=== PATIENT | male | born 1980 | race Caucasian/White ===

== ENCOUNTER 2019-11-08 17:31 | Emergency (ER) | payer BC ==
[~2019-11-08] VITALS: Ht 180.3 cm; Wt 129.3 kg
[2019-11-08 17:32] VITALS: BP 166/93
[2019-11-08] MEDS: FLUORESCEIN OPHTH TEST STRIP. OD ONE (17:45)
[2019-11-08] MEDS: DEXAMETHASONE 4 MG TABLET PO ONE (17:45)
[2019-11-08] MEDS: TETRACAINE 0.5% OPHTH SOLUTION 4ML BOTTLE. OD ONE (17:45)
[2019-11-08] MEDS ORDERED: PRED20TA PO (17:58)
[2019-11-08] MEDS ORDERED: HYDR-3164 PO (17:58)
--- NOTE | 2019-11-08 17:58 | PHYS DOC ---
Adult General Chief Complaint Chief Complaint: SHINGLES HPI HPI Patient is a 39 year old [f__sex] who presents with [] Review of Systems Review of Systems Constitutional: Denies fever or chills [] Eyes: Denies change in visual acuity, redness, or eye pain [] HENT: Denies nasal congestion or sore throat [] Respiratory: Denies cough or shortness of breath [] Cardiovascular: No additional information not addressed in HPI [] GI: Denies abdominal pain, nausea, vomiting, bloody stools or diarrhea [] : Denies dysuria or hematuria [] Musculoskeletal: Denies back pain or joint pain [] Integument: Denies rash or skin lesions [] Neurologic: Denies headache, focal weakness or sensory changes [] Endocrine: Denies polyuria or polydipsia [] All other systems were reviewed and found to be within normal limits, except as documented in this note. Current Medications Current Medications Current Medications Medications (Trade) Dose Ordered Sig/Arelis Start Time Stop Time Status Last Admin Dose Admin Dexamethasone (Decadron) 10 mg 1X ONCE 11/08/19 17:45 11/08/19 17:46 UNV Fluorescein Sodium (Ful-Belinda) 1 strip 1X ONCE 11/08/19 17:45 11/08/19 17:46 UNV Tetracaine HCl (Tetracaine) 2 drop 1X ONCE 11/08/19 17:45 11/08/19 17:46 UNV Allergies Allergies Allergies Coded Allergies Type Severity Reaction Last Updated Verified Penicillins Allergy Unknown 11/08/19 Yes Physical Exam Physical Exam Constitutional: Well developed, well nourished, no acute distress, non-toxic appearance. [] HENT: Normocephalic, atraumatic, bilateral external ears normal, oropharynx moist, no oral exudates, nose normal. [] Eyes: PERRLA, EOMI, conjunctiva normal, no discharge. [] Neck: Normal range of motion, no tenderness, supple, no stridor. [] Cardiovascular:Heart rate regular rhythm, no murmur [] Lungs & Thorax: Bilateral breath sounds clear to auscultation [] Abdomen: Bowel sounds normal, soft, no tenderness, no masses, no pulsatile masses. [] Skin: Warm, dry, no erythema, no rash. [] Back: No tenderness, no CVA tenderness. [] Extremities: No tenderness, no cyanosis, no clubbing, ROM intact, no edema. [] Neurologic: Alert and oriented X 3, normal motor function, normal sensory function, no focal deficits noted. [] Psychologic: Affect normal, judgement normal, mood normal. [] EKG EKG [] Radiology/Procedures Radiology/Procedures [] Course & Med Decision Making Course & Med Decision Making Pertinent Labs and Imaging studies reviewed. (See chart for details) [] Dragon Disclaimer Dragon Disclaimer This electronic medical record was generated, in whole or in part, using a voice recognition dictation system. Departure Departure Impression: Primary Impression: Shingles Disposition: HOME, SELF-CARE Condition: STABLE Patient Instructions: Shingles, [id number] Scripts Hydrocodone/Apap 5-325 (NORCO 5-325 TABLET) 1 Each Tablet 0.5-1 TAB PO PRN Q6HRS PRN for PAIN, #10 TAB 0 Refills Prov: MARY JO HANCOCK DO 11/08/19 Prednisone (PREDNISONE) 20 Mg Tablet 2 TAB PO DAILY, #8 TAB Prov: MARY JO HANCOCK DO 11/08/19 Problem Qualifiers Primary Impression: Shingles Herpes zoster complications: without complications Qualified Codes: B02.9 - Zoster without complications MARY JO HANCOCK DO Nov 08, 2019 17:58
== END 2019-11-08 18:06 | disposition home or self-care (01) ==
LOC: ER 17:31
DX: B02.9 Zoster without complications (principal); R22.0 Localized swelling, mass and lump, head; Z88.0 Allergy status to penicillin
CPT/HCPCS: 99284; J8540